=== PATIENT | male | born 1990 | race Two or more races ===

== ENCOUNTER 2023-12-24 21:24 | Emergency (ER) | payer SELFPAY ==
[~2023-12-24] VITALS: Ht 172.7 cm; Wt 97.5 kg
[2023-12-24] MEDS ORDERED: CLONIDINE HCL 0.1 MG TABLET ONE (22:59)
[2023-12-24] MEDS ORDERED: TETRACAINE HCL 0.5% OPHT DROP 2 ML BOTTLE ONE (22:59)
[2023-12-24] MEDS ORDERED: NITROGLYCERIN 0.4 MG/TAB BOTTLE SL ONE (22:59)
[2023-12-24] MEDS: CLONIDINE HCL 0.1 MG TABLET PO ONE (23:04)
[2023-12-24] MEDS: TETRACAINE HCL 0.5% OPHT DROP 2 ML BOTTLE OP ONE (23:04)
[2023-12-24] MEDS: NITROGLYCERIN 0.4 MG/TAB BOTTLE SL ONE ×2 (23:04→23:41)
[2023-12-24] MEDS ORDERED: ACETAMINOPHEN 500 MG TABLET ONE (23:42)
[2023-12-24] MEDS: ACETAMINOPHEN 500 MG TABLET PO ONE (23:44)
[2023-12-25] MEDS ORDERED: CLON0.1T PO (00:22)
[2023-12-25 00:31] VITALS: BP 163/118; TEMP 97.4; O2SAT 99
== END 2023-12-25 00:31 | disposition home or self-care (01) ==
LOC: ER 21:29
DX: I10 Essential (primary) hypertension (principal); T65.894A Toxic effect of other specified substances, undetermined, initial encounter; I11.9 Hypertensive heart disease without heart failure; Z79.899 Other long term (current) drug therapy; Z88.0 Allergy status to penicillin; Y92.89 Other specified places as the place of occurrence of the external cause
CPT/HCPCS: A4606; A4663; A9150